=== PATIENT | male | born 1980 | race Caucasian/White ===

== ENCOUNTER 2021-10-02 15:04 | Emergency (ER) | payer OTHER, SELFPAY ==
--- NOTE | 2021-10-02 15:49 | ED.ABDPAIN ---
HPI - Abdominal Pain General Chief Complaint: Headache Stated Complaint: BODY ACHES,STOMACH PAIN,HEADACHE Time Seen by Provider: 10/02/21 15:49 Source: patient Mode of arrival: ambulatory Limitations: no limitations History of Present Illness HPI narrative: 41-year-old man was previously well comes in today complaining of body aches, nausea, diarrhea, headache, fatigue, fever and chills. His cousin, who is frequently spends time with, was recently diagnosed with COVID. Denies shortness of breath, chest pain, increased cough, and vomiting. MD elicited complaint: abdominal pain Pertinent past history: none Onset (ago): day(s) (1-2) Pain Consistency: constant Severity: moderate Quality: aching Relieving factors: nothing Context: confirms sick contacts Associated symptoms: nausea, diarrhea, fever and chills Related Data Home Medications Medication Instructions Recorded Confirmed No Home Medications 10/02/21 10/02/21 Allergies Allergy/AdvReac Type Severity Reaction Status Date / Time No Known Allergies Allergy Verified 10/02/21 15:57 Review of Systems Review of Systems: All systems reviewed & are unremarkable except as noted in HPI and below Constitutional: Constitutional: Reports chills, Reports fatigue and Reports fever(s) ENT: Denies nasal congestion and Denies sore throat Cardiovascular: Cardiovascular: Denies chest pain and Denies radiating jaw, neck or arm pain Respiratory: Respiratory: Reports cough and Denies dyspnea Gastrointestinal: Gastrointestinal: Reports abdominal pain, Reports diarrhea, Reports nausea and Denies vomiting Integumentary/Breasts: Skin/Breast: Denies pruritus, Denies erythema and Denies rash Neurologic: Denies vertigo, Denies dizziness, Denies syncope, Reports headache(s) and Denies weakness Allergic/Immunologic: Allergic/Immunologic: Denies lip swelling and Denies throat swelling [facility] Social History Social History (Updated 10/02/21 @ 15:57 by James Garcia MD) Smoking status: Current every day smoker Alcohol intake: current Substance use: current Substance use type: marijuana Living arrangements: with family Exam Const: General: healthy appearing and alert Orientation/consciousness: patient oriented x3 Limitations: no limitations Other: Mild acute distress. HENMT: Head: normal to inspection Ears: external ears normal, TM's normal bilaterally and EAC's normal Face and sinus: normal facial exam Mouth: Yes moist mucous membranes Throat: posterior oropharynx normal Eyes: Conjunctivae: conjunctivae normal Pupils: Equal, round and reactive pupils present EOM: EOMs intact bilaterally Resp: Effort & Inspection: normal respiratory effort and not labored Auscultation: clear to auscultation bilaterally, no rales, no rhonchi and no wheezes Cardio: Rate: regular rate Rhythm: regular rhythm Heart sounds: no murmurs Skin: General skin exam: normal color, no jaundice and no pallor Rashes: no rashes Neuro: General: patient oriented x3, moves all extremities, no focal motor deficits and CN's II-XI intact bilaterally Speech: normal speech Gait exam (Neuro): Normal gait present Extrem: General: normal to inspection and no clubbing, cyanosis or edema Psych: Appearance: grossly normal and well kempt Mental Status: mental status grossly normal Affect: normal affect Attitude: cooperative Thought content: Yes Normal thought content present Course Vital Signs Vital signs: Vital Signs Temperature 36.8 C 10/02/21 15:51 Pulse Rate 83 10/02/21 15:51 Respiratory Rate 20 10/02/21 15:51 Blood Pressure 141/103 H 10/02/21 15:51 Pulse Oximetry 97 10/02/21 15:51 Temperature 36.8 C 10/02/21 15:51 Pulse Rate 83 10/02/21 15:51 Respiratory Rate 20 10/02/21 15:51 Blood Pressure 141/103 H 10/02/21 15:51 Pulse Oximetry 97 10/02/21 15:51 MDM - Abdominal Pain Lab Data Labs: Lab Results 10/02/21 Range/Units 15:15 Influenz
[2021-10-02 15:51] VITALS: BP 141/103; PULSE 83; RESP 20; TEMP 36.8; O2SAT 97
[2021-10-02 16:05] LABS: Influenza A QL RT-PCR Negative (Negative); Influenza B QL RT-PCR Negative (Negative); SARS-CoV-2 RNA PCR Positive (Negative)
[2021-10-02] MEDS: IBUPROFEN 600 MG TABLET PO (16:11)
[2021-10-02 16:59] VITALS: BP 129/105; PULSE 73; RESP 20; TEMP 36.7; O2SAT 96
== END 2021-10-02 17:00 | disposition home or self-care (01) ==
PROVIDERS: Emergency Provider Emergency Medicine
DX: U07.1 COVID-19 (principal)
CPT/HCPCS: 87502; 99282; 99283; A9270; C9803; U0003; U0005